=== PATIENT | female | born 1990 | race African-American/Black ===

== ENCOUNTER 2016-11-27 09:52 | Emergency (ER) | payer MEDICAID ==
[~2016-11-27] VITALS: Ht 160 cm; Wt 138.0 kg
[2016-11-27 10:13] VITALS: BP 124/72
== END 2016-11-27 15:15 | disposition left against medical advice (07) ==
LOC: ER 09:52
DX: Z53.21 Procedure and treatment not carried out due to patient leaving prior to being seen by health care provider (principal)

== ENCOUNTER 2023-11-10 11:49 | Emergency (ER) | payer MEDICAID ==
[~2023-11-10] VITALS: Ht 170.2 cm; Wt 95.0 kg
[2023-11-10 11:57] VITALS: TEMP 98.4; O2SAT 100
[2023-11-10 14:02] VITALS: BP 143/75; PULSE 102; RESP 16
[2023-11-10] MEDS: KETOROLAC 30MG/ML VIAL IM STA (14:02)
[2023-11-10] MEDS: HYDROCODONE/ACETAMINOPHEN 5/325MG TABLET PO STA (14:02)
[2023-11-10] MEDS: ONDANSETRON 4MG ODT PO ONE (14:07)
[2023-11-10 14:14] LABS: HEMATOCRIT. 33.6 % (36.0-48.0); HEMOGLOBIN. 10.4 g/dL (12.0-16.0); MEAN CORPUSCULAR HEMOGLOBIN 23.6 pg (28.0-32.0); MEAN CORPUSCULAR HGB CONC 31.1 g/dL (31.0-37.0); MEAN CORPUSCULAR VOLUME 76.2 fL (81.0-99.0); MEAN PLATELET VOLUME 8.7 fl (7.4-10.4); PLATELET 280 x1000/uL (130-400); RED BLOOD CELL COUNT 4.42 mill/uL (4.2-5.4); RED CELL DISTRIBUTION WIDTH 17.3 % (11.6-14.6); WHITE BLOOD COUNT 16.6 x1000/uL (4.5-11.0)
[2023-11-10 14:17] LABS: DIFFERENTIAL COMMENT 1
[2023-11-10 14:18] LABS: CHLORIDE 98 mEq/L (98-107); POTASSIUM 3.7 mEq/L (3.5-5.1); SODIUM 131 mEq/L (136-145)
[2023-11-10 14:20] LABS: CALCIUM 9.5 mg/dL (8.7-10.4); CARBON DIOXIDE 26 mEq/L (21-32)
[2023-11-10 14:23] LABS: PROTHROMBIN TIME 10.7 sec (9.6-11.0)
[2023-11-10 14:25] LABS: CREATININE 0.7 mg/dL (0.6-1.0); GLUCOSE 94 mg/dL (70-105); UREA NITROGEN BLOOD 9 mg/dL (9-23)
[2023-11-10 14:26] LABS: ALANINE AMINOTRANSFERASE 34 IU/L (10-49)
[2023-11-10 14:27] LABS: ALBUMIN 4.4 g/dL (3.2-4.8); ASPARTATE AMINOTRANSFERASE 22 IU/L (<34); BILIRUBIN TOTAL 0.3 mg/dL (0.1-1.0); PROTEIN TOTAL 8.3 g/dL (6.0-8.3)
[2023-11-10 14:28] LABS: HCG SCREEN POSITIVE
[2023-11-10 14:33] LABS: CLARITY URINE CLEAR (CLEAR); COLOR URINE YELLOW (YELLOW); GLUCOSE URINE NEGATIVE (NEGATIVE); KETONES URINE NEGATIVE (NEGATIVE); LEUKOCYTE ESTERASE URINE 3+ (NEGATIVE); NITRITE URINE NEGATIVE (NEGATIVE); OCCULT BLOOD URINE 3+ (NEGATIVE); PH URINE 6.5 (4.5-8.0); PROTEIN URINE NEGATIVE (NEGATIVE); SPECIFIC GRAVITY URINE 1.021 (1.005-1.030)
[2023-11-10 14:41] LABS: WBC URINE 15-25 /hpf (0-2)
[2023-11-10 14:42] LABS: BACTERIA URINE 2+; SQUAMOUS EPITHELIAL CELL URINE 1+ /lpf (RARE/1+); YEAST URINE NONE SEEN
[2023-11-10 14:47] LABS: *AMPHETAMINES SCREEN URINE PRESUMPTIVE POSITIVE (NEGATIVE)
[2023-11-10 14:47] LABS: BILIRUBIN DIRECT < 0.1 mg/dL (<=3.0); ETHANOL BLOOD < 10 mg/dL (<10)
[2023-11-10 14:48] LABS: *BARBITURATES SCREEN URINE NEGATIVE (NEGATIVE); *BENZODIAZEPINES SCREEN URINE NEGATIVE (NEGATIVE); *COCAINE SCREEN URINE NEGATIVE (NEGATIVE); CANNABINOID URINE SCREEN PRESUMPTIVE POSITIVE (NEGATIVE); ECSTASY MDMA SCREEN URINE NEGATIVE (NEGATIVE); METHADONE URINE SCREEN NEGATIVE (NEGATIVE); OPIATES URINE SCREEN NEGATIVE (NEGATIVE); PHENCYCLIDINE URINE SCREEN NEGATIVE (NEGATIVE)
[2023-11-10 14:51] LABS: B-HCG QUANTITATIVE 204806 mIU/mL (<3)
[2023-11-10] MEDS ORDERED: CLINDAMYCIN 900 MG in DEXTROSE 5% WATER 50 ML IV ONE (15:45)
[2023-11-10] MEDS ORDERED: SODIUM CHLORIDE 0.9% 1000ML BAG (SEPSIS BOLUS) IV ONE (15:45)
[2023-11-10] MEDS ORDERED: AMPICILLIN 1,000 MG in SODIUM CHLORIDE 0.9% 50 ML IV SCH (15:45)
[2023-11-10] MEDS ORDERED: METRONIDAZOLE 500 MG PREMIX 100 ML IV ONE (15:45)
[2023-11-10] MEDS ORDERED: CLINDAMYCIN 900MG PREMIX 50 ML IV NR (16:00)
[2023-11-10 16:01] LABS: ANISOCYTOSIS 1+; HYPOCHROMASIA 1+; MICROCYTOSIS 1+; PLATELET ESTIMATE NORMAL
[2023-11-10] MEDS ORDERED: CEPH500T MT (16:08)
[2023-11-10] MEDS ORDERED: CEFTRIAXONE 1GM/50ML 50 ML IV NR (16:15)
[2023-11-10] MEDS: CEPHALEXIN 250MG CAPSULE PO NR (16:38)
== END 2023-11-10 17:44 | disposition home or self-care (01) ==
LOC: ER 11:49
DX: O23.31 Infections of other parts of urinary tract in pregnancy, first trimester (principal); N39.0 Urinary tract infection, site not specified; R10.2 Pelvic and perineal pain; F12.10 Cannabis abuse, uncomplicated; Z3A.08 8 weeks gestation of pregnancy
CPT/HCPCS: 80076; 80305; 80048; 81003; 81025; 80320; 84703; 84702; 83605; 83690; 85025; 85610; 87040; 87086; 36415; 76801; 76817; 96372; 99285; Q0162; J0290; J3490; J1885; J7030; J7060; G0480